=== PATIENT | female | born 1955 | race Caucasian/White ===

== ENCOUNTER 2019-11-21 07:11 | Day surgery (SDC) | payer OTHER ==
[2019-11-21 09:42] VITALS: BP 124/85; TEMP 97.9; O2SAT 97
[2019-11-21] MEDS ORDERED: LACTATED RINGERS 1,000 ML ONE (09:50)
--- NOTE | 2019-11-21 09:57 | OP ---
DATE OF PROCEDURE: 11/21/19 PREOPERATIVE DIAGNOSIS: 1. History of colonic polyps. POSTOPERATIVE DIAGNOSIS: 1. Normal colon. PROCEDURE: 1. Colonoscopy. SURGEON: Satinder Lamb MD COMPLICATIONS: None. ESTIMATED BLOOD LOSS: None. CONDITION: Stable. PLAN: Discharge. INDICATION: As stated. PROCEDURE: General anesthesia was induced in the lateral position. Digital rectal exam was normal. Visual inspection revealed external hemorrhoids, non- thrombosed. The colonoscope was introduced. Just at 20 cm, there was difficulty passing this area, likely due to her previous hysterectomy and C- sections. We made multiple attempts and then ultimately put her on her back and we were able to traverse it at that point and complete the colonoscopy. We got to the cecum without difficulty as identified by the appendiceal orifice and ileocecal valve. It was an adequate prep. Upon withdrawal, no polyps or other mucosal abnormalities were seen. We examined the previous area of difficulty and went through it actually again and now it was a straight shot. There was a slight mucosal abrasion, but no evidence of any problems. Retroflexion was normal. She tolerated the procedure. She was taken to Recovery to be discharged. #[id number] MTDD
[2019-11-21] MEDS ORDERED: PROPOFOL 200 MG/20 ML VIAL IV ONE (10:00)
== END 2019-11-21 09:30 | disposition home or self-care (01) ==
LOC: AMB 07:11
PROVIDERS: ATTEND Surgery
DX: K64.4 Residual hemorrhoidal skin tags (principal); I10 Essential (primary) hypertension; F32.9 Major depressive disorder, single episode, unspecified; I47.1 Supraventricular tachycardia; E78.00 Pure hypercholesterolemia, unspecified; K21.9 Gastro-esophageal reflux disease without esophagitis; Z86.010 Personal history of colon polyps; Z79.899 Other long term (current) drug therapy
CPT/HCPCS: 00811; 45378; J3490; J7120